=== PATIENT | female | born 1980 | race Two or more races ===

== ENCOUNTER 2019-07-30 08:17 | Emergency (ER) | payer MEDICAID, OTHER ==
[~2019-07-30] VITALS: Ht 152.4 cm; Wt 72.6 kg
[2019-07-30 08:46] LABS: Urine Bacteria NONE SEEN /hpf (None Seen); Urine Blood Negative /uL (Negative); Urine Mucus FEW (None Seen); Urine Specific Gravity 1.027 (1.001-1.035); Urine WBC 1 /hpf (0 - 5)
[2019-07-30 10:31] VITALS: BP 111/73
== END 2019-07-30 10:44 | disposition home or self-care (01) ==
LOC: ER 08:17
DX: R10.2 Pelvic and perineal pain (principal); R51 Headache
CPT/HCPCS: 74176; 81001; 87210